=== PATIENT | male | born 1990 | race African-American/Black ===

== ENCOUNTER 2020-11-17 02:56 | Emergency (ER) | payer OTHER ==
[2020-11-17 03:57] LABS: HEMOGLOBIN 13.6 gm/dl (14.0-17.5); RED BLOOD COUNT 4.5 M/UL (4.20-5.50); WHITE BLOOD COUNT 15.5 K/UL (4.5-11.0)
[2020-11-17 04:27] LABS: BUN/CREATININE RATIO 8 (0-10)
== END 2020-11-17 08:54 | disposition home or self-care (01) ==
LOC: ER1 02:56
PROVIDERS: Emergency Medicine
DX: T40.7X2A Poisoning by cannabis (derivatives), intentional self-harm, initial encounter (principal); E87.6 Hypokalemia; E87.2 Acidosis; S60.812A Abrasion of left wrist, initial encounter; S60.811A Abrasion of right wrist, initial encounter; S90.512A Abrasion, left ankle, initial encounter; S90.511A Abrasion, right ankle, initial encounter; S80.212A Abrasion, left knee, initial encounter; S80.211A Abrasion, right knee, initial encounter; W22.8XXA Striking against or struck by other objects, initial encounter; Z20.822 Contact with and (suspected) exposure to COVID-19
CPT/HCPCS: 36600; 51702; 71045; 80053; 80307; 81001; 82550; 82553; 82800; 82803; 83605; 83690; 83735; 83874; 84439; 84443; 84484; 85025; 90471; 90715; 93005; 94760; 96372; 96374; 99284; G0480; U0002